=== PATIENT | female | born 1975 | race Caucasian/White ===

== ENCOUNTER 2016-04-25 07:21 | Inpatient (IN) | payer OTHER ==
[~2016-04-25] VITALS: Ht 160 cm; Wt 68.0 kg
[~2016-04-25 07:21] MED LIST: ACET325T45 PO; CEPH-443 PO; OXYTOCIN 30 UNITS/LR 500 ML BAG IV ONE; PNV1TABL50
[2016-04-25 07:24] VITALS: Ht 160 cm; Wt 68.0 kg
[2016-04-25 07:30] VITALS: BP 122/69; PULSE 91; RESP 20
[2016-04-25] MEDS ORDERED: MISOPROSTOL 200 MCG TAB PR PRN ×2 (08:00→14:00)
[2016-04-25] MEDS ORDERED: METHYLERGONOVINE 0.2 MG INJ IM PRN ×2 (08:00→14:00)
[2016-04-25] MEDS ORDERED: OXYTOCIN 30 UNITS/LR 500 ML IV SCH (08:00)
[2016-04-25] MEDS ORDERED: CARBOPROST 250 MCG INJ IM PRN ×2 (08:00→14:00)
[2016-04-25] MEDS ORDERED: CEFAZOLIN 2 GM/50 ML (PMX) 50 ML IV SCH (08:00)
[2016-04-25] MEDS ORDERED: OXYTOCIN 30 UNITS/LR 500 ML IV PRN ×2 (08:00→14:00)
[2016-04-25] MEDS: LACTATED RINGER'S 1,000 ML IV SCH ×2 (08:14→09:09)
--- NOTE | 2016-04-25 08:18 | TRIAGE ---
OB Triage Datetime Report Generated by CPN: 04/25/2016 08:18 Datetime: 04/25/2016 08:03 Assessment Type: Admission Assessment Vaginal Bleeding: None Maternal Assessment Level of Consciousness: Fully Conscious DTR's/Clonus: DTRs 2+; No Clonus Headache: Denies Blurred Vision: No Respiratory Effort: Unlabored; Regular Rhythm; Equal Expansion Breath Sounds, Left: Clear and Equal Breath Sounds, Right: Clear and Equal Nausea/Vomiting: Denies RUQ Epigastric Pain: Denies Lower Extremities Edema: None Degree: None Upper Extremities Edema: None Degree: None Facial Edema: None Fall Risk Assessment History of Falling: (0) No Secondary Diagnosis: (0) No Ambulatory Aid: (0) Bedrest/Nurse Assist IV Therapy: (0) No Gait: (0) Normal/Bedrest/Immobile Mental Status: (0) Oriented to Own Ability Fall Score: 0 Fall Risk Score Definition: No Risk: No action required Labor Evaluation Frequency: q 6 Duration (sec)2399: 60 Quality: Moderate Pattern: Normal: <= 5 Contractions in 10 Minutes Resting Tone [place]: Relaxed Heart Rate FHR Baseline Rate: 135 Variability: Moderate 6-25 bpm Accelerations: 15X15 Decelerations: Variable Category: Category I Pain Assessment Pain Scale: 4 Pain Presence: Intermittent Pain Type: Contraction Pain Location: Abdomen Vaginal Exam Dilatation (cms): 1.0 Effacement (%): 80 Station: -1 Membrane Status: Ruptured Membranes Ruptured Date/Time: 04/25/2016 05:00 Membranes Rupture Method: Spontaneous Amniotic Fluid Amount: Moderate Amniotic Fluid Odor: Normal Nitrazine: Positive Datetime: 04/25/2016 08:00 Assessment Type: Admission Assessment Vaginal Bleeding: None Maternal Assessment Level of Consciousness: Fully Conscious DTR's/Clonus: DTRs 2+; No Clonus Headache: Denies Blurred Vision: No Respiratory Effort: Unlabored; Regular Rhythm; Equal Expansion Breath Sounds, Left: Clear and Equal Breath Sounds, Right: Clear and Equal Nausea/Vomiting: Denies RUQ Epigastric Pain: Denies Facial Edema: None Fall Risk Assessment History of Falling: (0) No Secondary Diagnosis: (0) No Ambulatory Aid: (0) Bedrest/Nurse Assist IV Therapy: (0) No Gait: (0) Normal/Bedrest/Immobile Mental Status: (0) Oriented to Own Ability Fall Score: 0 Fall Risk Score Definition: No Risk: No action required Datetime: 04/25/2016 07:40 Time of Arrival: 04/25/2016 07:15 EGA: 37.1 Arrived By: Ambulatory Arrived From: Home Chief Complaint: SROM AT 0500 AND UCS Movement: Present Contractions: Regular Patient Complaints: Contractions; Other Time Provider Notified: 04/25/2016 07:40 Provider Notified: DR HEALY Initial Plan: EFM,CALL DR HARRELL Datetime: 04/25/2016 07:38 Maternal Assessment Level of Consciousness: Fully Conscious DTR's/Clonus: DTRs 2+; No Clonus Headache: Denies Blurred Vision: No Respiratory Effort: Unlabored; Regular Rhythm; Equal Expansion Breath Sounds, Left: Clear and Equal Breath Sounds, Right: Clear and Equal Nausea/Vomiting: Denies RUQ Epigastric Pain: Denies Facial Edema: None Temperature Route: Axillary Fall Risk Assessment History of Falling: (0) No Secondary Diagnosis: (0) No Ambulatory Aid: (0) Bedrest/Nurse Assist IV Therapy: (0) No Gait: (0) Normal/Bedrest/Immobile Mental Status: (0) Oriented to Own Ability Fall Score: 0 Fall Risk Score Definition: No Risk: No action required Datetime: 04/25/2016 07:36 Maternal Assessment Level of Consciousness: Fully Conscious DTR's/Clonus: DTRs 2+ Headache: Denies Blurred Vision: No Nausea/Vomiting: Denies RUQ Epigastric Pain: Denies Facial Edema: None Labor Evaluation Frequency: Q 5 AT HOME Monitor Mode: External Duration (sec)2399: 60 Quality: Moderate Pattern: Normal: <= 5 Contractions in 10 Minutes Resting Tone [place]: Relaxed Heart Rate FHR Baseline Rate: 135 Monitor Mode: External US FHR Baseline Changes: No Baseline Change Variability: Moderate 6-25 bpm Accelerations: 15X15 Decelerations: None Category: Category I Pain Assessment Pain Scale: 4 Pain Presence: Intermittent Pain Type: Contraction Pain Location: Abdomen Vaginal Exam Dilatation (cms): 1.0 Effacement (%): 80 Station: -2 Exam By: CRIS SALMON Membrane Status: Ruptured Membranes Rupture Method: Spontaneous Amniotic Fluid Amount: Moderate Amniotic Fluid Odor: Foul Vaginal Bleeding: None Nitrazine: Positive Cervix, Consistency: Moderate Cervix, Position: Posterior
[2016-04-25 08:33] LABS: BASOPHILS % 0.4 % (0.0-2.0); EOSINOPHILS # 0.3 10^3/ul (0.0-0.5); EOSINOPHILS % 3.7 % (0.0-7.0); HEMATOCRIT 34.3 % (37.0-47.0); HEMOGLOBIN 12.1 g/dl (12.0-16.0); LYMPHOCYTES # 2.2 10^3/ul (0.8-2.9); LYMPHOCYTES % 25.8 % (15.0-51.0); MEAN CORPUSCULAR HEMOGLOBIN 30.1 pg (29.0-33.0); MEAN CORPUSCULAR HGB CONC 35.2 g/dl (32.0-37.0); MEAN CORPUSCULAR VOLUME 85.7 fl (82.0-101.0); MONOCYTE # 0.8 10^3/ul (0.3-0.9); NEUTROPHIL # 5.3 10^3/ul (1.6-7.5); NEUTROPHILS % 61.1 % (39.0-77.0); PLATELET COUNT 227 10^3/UL (140-440); RED CELL DISTRIBUTION WIDTH 14.2 % (11.5-14.5); UNCORRECTED WBC 8.6 10^3/ul (4.8-10.8); WHITE BLOOD COUNT 8.6 10^3/ul (4.8-10.8)
[2016-04-25 08:36] LABS: CONDITION 1
[2016-04-25 08:47] LABS: INR 0.98
[2016-04-25 08:48] LABS: PARTIAL THROMBOPLASTIN TIME 25.4 Sec (25.0-35.0)
[2016-04-25] MEDS ORDERED: PHENYLephrine (100 MCG/ML) 5ML SYG ONE ×3 (09:23→10:38)
[2016-04-25] MEDS ORDERED: morphine SULFATE/PF (10 MG/10 ML) INJ ONE (09:23)
[2016-04-25] MEDS ORDERED: ONDANSETRON 4 MG INJ ONE (09:54)
[2016-04-25] MEDS ORDERED: ONDANSETRON 4 MG INJ IV PRN ×2 (10:30)
[2016-04-25] MEDS ORDERED: FENTAnyl 50 MCG/ML VIAL IV PRN ×2 (10:30)
[2016-04-25] MEDS ORDERED: NALOXONE (0.4 MG/ML) INJ IV PRN (10:30)
[2016-04-25] MEDS ORDERED: PROCHLORPERAZINE 10 MG INJ IV PRN (10:30)
[2016-04-25] MEDS ORDERED: HYDROmorphONE (0.2 MG/ML) 10ML SYG IV PRN ×3 (10:30)
[2016-04-25] MEDS ORDERED: HYDROmorphONE 1 MG/ML SYG IV PRN (10:30)
[2016-04-25] MEDS ORDERED: DIPHENHYDRAMINE 50 MG INJ IV PRN ×2 (10:30)
[2016-04-25] MEDS ORDERED: MEPERIDINE 25 MG INJ IV PRN (10:30)
[2016-04-25] MEDS ORDERED: METOCLOPRAMIDE 10 MG INJ IV PRN (10:30)
--- NOTE | 2016-04-25 11:15 | HP ---
Date/Time of Note Date/Time of Note DATE: 04/25/16 TIME: 09:49 OB - History Hx of Present Free Text/Dictation This is a 40 years old female 5 para 2 IAB to living child to [facility] of May 15, 2006 admitted to [facility] at 37 weeks 1 day with a history of previous premature rupture of membrane in labor being prepared to undergo repeat patient also has requested and has signed a consent on April 02, 2006 for sterilization bilateral tubal ligation at the time of her section the issues regarding tubal ligation which includes but not limited to increased risk of ectopic future failure to conceive , procedure failure otherwise her was not not complicated with gestational diabetes -induced hypertension or any other medical or surgical condition . [employer] history; [place] at age 13 history of total of 5 including the present 2 previous 2 induced , patient also stating she may have an IUD inside of her uterus which has been there for the past several years. Review of system within normal Physical examination 5 feet 3 150 pound Temp 97.6 pulse 86 respiration 20 blood pressure 107/66 Head ears nose and throat negative Lungs clear to P&A Heart normal sinus rhythm no murmur Abdomen fundal height measuring from upper pubic arch to the height of the fundus 37 cm heart rate category 1 Pelvic exam; premature rupture of membranes cervix 1 cm 70% effaced vertex at - 2 station Extremity no edema no varicosities Impression; intrauterine at 37 weeks 1 day history of 2 previous C- section premature rupture of membrane in labor requests for bilateral tubal ligation Complication of the surgery including bowel bladder injury wound infection hemorrhage and hematoma has been discussed with the patient and she would like to proceed with the procedure' Chief Complaint: Labor pain Estimated Due Date: May 15, 2016 : 5 Para: 2 Therapeutic : 2 Care: Good Care Ultrasounds: Normal mid trimester US Obstetrical Complications: None Medical Complications: None Past Family/Social History * Past Medical, Surgical, Family and Obstetric Histories reviewed from chart. Rubella: immune RPR/VDRL: Negative GBS Status: Negative HBsAG: Negative OB Admission Exam Vital Signs Vital Signs Vital Signs Date Time Temp Pulse Resp B/P Pulse Ox O2 Delivery O2 Flow Rate FiO2 04/25/16 07:30 97.8 91 20 122/69 Room Air Physical Exam HEENT: WNL Heart: Rhythm Normal Lungs: Clear, Equal Abdomen: WNL Extremities: Normal Cervical Dilatation: 1cm Effacement: 50% Station: -1 Amniotic Fluid: Clear Heart Rate: 130's Accelerations: Accelerations Present Decelerations: No Decelerations Varibility: Moderate Contractions on Admission: < 5 Minutes Apart Intensity: Moderate Last 72 hours Lab Results CBC & BMP 04/25/16 08:08 VICKY HARRELL MD Apr 25, 2016 10:01
[2016-04-25] MEDS ORDERED: LANOLIN 7 GM TUBE TOP PRN (14:00)
[2016-04-25] MEDS ORDERED: ACETAMINOPHEN/CODEINE #3 TAB PO PRN ×2 (14:00)
[2016-04-25] MEDS ORDERED: OXYCODONE/ACETAMINOPHEN (5/325) TAB PO PRN (14:00)
[2016-04-25 14:10] VITALS: BP 107/70; PULSE 86; RESP 18
[2016-04-25 14:40] VITALS: BP 100/64; PULSE 86; RESP 18
[2016-04-25] MEDS: OXYTOCIN 30 UNITS/LR 500 ML IV SCH ×2 (15:26→19:49)
[2016-04-25 15:40] VITALS: BP 98/58; PULSE 89; RESP 19
[2016-04-25 16:40] VITALS: BP 105/62; PULSE 76; RESP 18
[2016-04-25] MEDS ORDERED: CEFAZOLIN 1 GM/50 ML (PMX) 50 ML IVPB SCH (19:00)
[2016-04-25 19:45] VITALS: BP 101/57; PULSE 75; RESP 18
[2016-04-26] VITALS: BP 109/74; PULSE 89; RESP 18
[2016-04-26] MEDS ORDERED: LACTATED RINGER'S 1,000 ML IV SCH
[2016-04-26] MEDS: HYDROmorphONE 1 MG/ML SYG IV PRN ×2 (00:31→06:09)
[2016-04-26 04:00] VITALS: BP 94/62; PULSE 92; RESP 18
[2016-04-26 08:37] VITALS: BP 110/72; PULSE 84; RESP 17
[2016-04-26] MEDS: OXYCODONE/ACETAMINOPHEN (5/325) TAB PO PRN ×2 (08:37→19:54)
[2016-04-26] MEDS: SENNA/DOCUSATE NA (8.6MG/50MG) TAB PO SCH ×2 (08:37→21:00)
[2016-04-26 08:38] LABS: BASOPHILS % 0.3 % (0.0-2.0); EOSINOPHILS # 0.3 10^3/ul (0.0-0.5); EOSINOPHILS % 1.8 % (0.0-7.0); HEMATOCRIT 31.8 % (37.0-47.0); HEMOGLOBIN 11.2 g/dl (12.0-16.0); LYMPHOCYTES # 1.6 10^3/ul (0.8-2.9); LYMPHOCYTES % 10.3 % (15.0-51.0); MEAN CORPUSCULAR HEMOGLOBIN 30.2 pg (29.0-33.0); MEAN CORPUSCULAR HGB CONC 35.4 g/dl (32.0-37.0); MEAN CORPUSCULAR VOLUME 85.4 fl (82.0-101.0); MEAN PLATELET VOLUME 9.5 fl (7.4-10.4); MONOCYTE # 1.1 10^3/ul (0.3-0.9); MONOCYTES % 7.1 % (0.0-11.0); NEUTROPHIL # 12.4 10^3/ul (1.6-7.5); NEUTROPHILS % 80.5 % (39.0-77.0); PLATELET COUNT 210 10^3/UL (140-440); RED BLOOD COUNT 3.72 10^6/ul (4.20-5.40); RED CELL DISTRIBUTION WIDTH 13.9 % (11.5-14.5); UNCORRECTED WBC 15.4 10^3/ul (4.8-10.8); WHITE BLOOD COUNT 15.4 10^3/ul (4.8-10.8)
[2016-04-26 09:00] LABS: CONDITION 1
[2016-04-26] MEDS: IBUPROFEN 600 MG TAB PO SCH ×2 (12:12→17:58)
[2016-04-26 15:40] VITALS: BP 97/65; PULSE 88; RESP 16
[2016-04-26 19:54] VITALS: BP 97/62; PULSE 72; RESP 20
[2016-04-27] MEDS: IBUPROFEN 600 MG TAB PO SCH ×4 (00:26→17:41)
[2016-04-27 04:30] VITALS: BP 90/50; PULSE 72; RESP 18
[2016-04-27 08:05] VITALS: BP 106/59; PULSE 79; RESP 18
[2016-04-27] MEDS: SENNA/DOCUSATE NA (8.6MG/50MG) TAB PO SCH ×2 (09:05→20:43)
[2016-04-27] MEDS: OXYCODONE/ACETAMINOPHEN (5/325) TAB PO PRN (09:06)
--- NOTE | 2016-04-27 09:46 | PN ---
Date/Time of Note Date/Time of Note DATE: 04/27/16 TIME: 09:44 OB Subjective Subjective Subjective Postop day 2 Afebrile abdomen soft incision dry bowel sounds present passing gas no bowel movement extremities normal ambulation recommended. VICKY HARRELL MD Apr 27, 2016 09:46
[2016-04-27] MEDS ORDERED: NA PHOSPHATE/BIPHOS 133 ML ENEMA PR ONE (10:00)
--- NOTE | 2016-04-27 11:09 | OPR ---
DATE OF OPERATION: PREOPERATIVE DIAGNOSES: 1. Intrauterine at 37 weeks one day. 2. History of previous section, premature rupture of membrane in labor. 3. Request for voluntary sterilization, bilateral tubal ligation. 4. Questionable presence of an intrauterine device in the uterus. POSTOPERATIVE DIAGNOSES: 1. Intrauterine at 37 weeks 1 day. 2. History of previous section, premature rupture of membranes, in labor. 3. Request for voluntary sterilization, bilateral tubal ligation. 4. Questionable presence of an intrauterine device in the uterus. PROCEDURE: Repeat transverse low cervical section, bilateral tubal ligation and removal of the IUD that was attached to the placenta. SURGEON: Vicky Chávez MD PROMOTIONS REPRESENTATIVE: Marques Hodges MD ANESTHESIA: Spinal. ANESTHESIOLOGIST: Arthur Pedro MD DETAILS OF THE PROCEDURE: Under satisfactory spinal anesthesia, the patient was prepped and draped and placed in supine position. Pfannenstiel incision was made, carried through the subcutaneous tis brennan. Old scar was removed. Fascia incised to the length of incision. Rectus muscle divided in mid line. Peritoneum exposed, entered through a transverse incision. Exploration of abdomen. Gravid u terus, normal appearing tubes and ovaries. Bladder flap was developed. Transverse incision was mad e in the lower segment of the uterus. Amniotic sac ruptured. Clear amniotic fluid noted. Live bab y boy was delivered from unengaged vertex. Nasal oropharyngeal suction was performed. Baby handed to the team for immediate attention. Patient received 20 units of Pitocin. Placenta deliv ered manually intact and was inspected and the IUD was attached to the placenta, which was sent to p athology. Uterine cavity cleaned with wet sponge and drainage established. Uterus closed in 2 laye rs using Monocryl #1 in continuous fashion. Bilateral tubal ligation was performed by identifying the ampullar and the fimbria of the right fallopian tube which was grasped by a Gordon. Suture mat erial used #0 plain catgut was reinforced with the same suture material. The female portion of the ampullar section of the tube was excised and cut end of the tube was cauterized and the specimen sub mitted for the pathology. The same procedure performed for the opposite side. Peritoneal cavity wa s irrigated with sterile water. Sponge, needle and instrument reported to be correct. Abdominal pe ritoneum approximated and closed with 2-0 chromic catgut. Rectus muscle approximated with few inter rupted 2-0 chromic catgut. Fascia closed with #1 PDS in a continuous fashion. Subcutaneous tissue irrigated with warm saline and approximated with several interrupted 2-0 chromic catgut. Skin close d with angie. Estimated blood loss 600 mL. Urine bag contained 200 mL of clear urine. Patient t olerated procedure well, transferred to recovery room in a good condition. Dictated By: VICKY CHÁVEZ MD HF/NTS Conf#: [id number] DID#: [id number] CC: MARQUES HODGES MD;*EndCC*
[2016-04-27 16:00] VITALS: BP 111/62; PULSE 78; RESP 18; RESP 78
[2016-04-27 19:40] VITALS: BP 97/53; RESP 20
[2016-04-28] MEDS: IBUPROFEN 600 MG TAB PO SCH ×3 (00:10→12:12)
[2016-04-28 04:20] VITALS: BP 110/63; PULSE 59; RESP 20
[2016-04-28 08:00] VITALS: BP 101/58; PULSE 59; RESP 20
[2016-04-28] MEDS: SENNA/DOCUSATE NA (8.6MG/50MG) TAB PO SCH (09:00)
[2016-04-28] MEDS ORDERED: DIPHTH/TET/ACEL PERTUSS (ADULT) 0.5 ML VIAL IM* ONE (09:00)
[2016-04-28] MEDS: OXYCODONE/ACETAMINOPHEN (5/325) TAB PO PRN (09:10)
--- NOTE | 2016-04-28 09:58 | PD.PPDC ---
LINING PRINTER Discharge Instruction Condition Patient Condition: Good Diet Diet: Resume Regular Diet Activity/Restrictions Activity: Normal Activity May Shower Restrictions: No Exercising No Lifting No Driving No Sexual Activity Nothing in the Vagina No [place] No Tampons, douche Wound/Drain Care Instructions Wound/Drain Care Instructions: Remove Steri Strips in 1 week Follow-up Follow-up with Physician: 4, Day/Days Provider Information: appointment clinic to jake adams in 3 to 4 days Return to clinic for HOME CARE RN Instructions: Fever greater than 101 Worsening abdominal pain Excessive Vaginal Bleeding More than 2 pads per hour Unable to tolerate diet Surgical Instructions: Incisional Drainage Incisional Redness VICKY HARRELL MD Apr 28, 2016 09:57
--- NOTE | 2016-04-28 10:01 | DS ---
Date/Time of Note Date/Time of Note DATE: 04/28/16 TIME: 09:59 Obstetrical Discharge Record Final Diagnosis Final Diagnosis: Term delivered Section Section: Repeat Condition on Discharge Physical Assessment Last Vitals: Vital sign stable afebrile abdomen soft incision dry patient had normal bowel movement extremity normal lochia normal discharged home with a follow-up instruction in 4 days to make appointment with the clinic to DC her angie Voiding: Yes Bowel Movement: Yes Breast: Filling Fundus: Firm Abdomen and Incision: Dry healing well Calf Tenderness: No Patient Condition: Good VICKY HARRELL MD Apr 28, 2016 10:01
[2016-04-28 16:00] VITALS: BP 112/61; PULSE 64; RESP 20
== END 2016-04-28 17:50 | disposition home or self-care (01) | DRG 766 ==
LOC: OBT 07:21 → L-D 07:21 → OBT 08:09 → L-D 09:34 → PP1 14:05
PROVIDERS: ADMIT Obstetrics & Gynecology; ATTEND Obstetrics & Gynecology
PROC: 0UL70ZZ Occlusion of Bilateral Fallopian Tubes, Open Approach (ICD-10-PCS; 2016-04-25)
PROC: 0UPD0HZ Removal of Contraceptive Device from Uterus and Cervix, Open Approach (ICD-10-PCS; 2016-04-25)
PROC: 10D00Z1 Extraction of Products of Conception, Low, Open Approach (ICD-10-PCS; principal; 2016-04-25 10:00)
DX: O34.211 Maternal care for low transverse scar from previous cesarean delivery (principal); Z30.432 Encounter for removal of intrauterine contraceptive device; Z30.2 Encounter for sterilization; Z3A.37 37 weeks gestation of pregnancy; Z37.0 Single live birth
CPT/HCPCS: 85025; 85610; 85730; 86592; 86850; 86900; 86901; 87340; 88302; 90715; 94760; 99464; G0463; J0690; J1170; J2274; J2370; J2405; J2590; J7120

== ENCOUNTER 2017-07-01 16:51 | Emergency (ER) | END 2017-07-01 22:30 | disposition home or self-care (01) ==

== ENCOUNTER 2017-12-31 09:05 | Day surgery (SDC) | END 2017-12-31 12:04 | disposition home or self-care (01) ==